=== PATIENT | male | born 1980 ===

== ENCOUNTER 2019-04-12 18:32 | Emergency (ER) | payer BC ==
[2019-04-12 18:42] VITALS: BP 145/92
[2019-04-12] MEDS ORDERED: Ondansetron ODT TAB* 4 MG PO ONE (18:46)
[2019-04-12] MEDS ORDERED: HYDROcodone/ACETAMIN 5-325 MG* 1 TAB PO ONE (18:47)
[2019-04-12] MEDS ORDERED: Tetan/Diph/Pertus SYR(Tdap)* 0.5 ML SYR(BOOSTRIX) use SYR IM ONE (18:47)
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
[2019-04-12] MEDS ORDERED: Silver Sulfadiazine 1%* 20 GM TOPICAL ONE (19:12)
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
== END 2019-04-12 19:40 | disposition home health service (06) ==
LOC: UCEAST 18:32
DX: T24.231A Burn of second degree of right lower leg, initial encounter (principal); T31.0 Burns involving less than 10% of body surface; Y26.XXXA Exposure to smoke, fire and flames, undetermined intent, initial encounter; Y92.9 Unspecified place or not applicable; Z23 Encounter for immunization
CPT/HCPCS: 16000; 90715; 99212; A9270-GY; G0463

== ENCOUNTER 2019-04-14 09:57 | Emergency (ER) | payer BC ==
[2019-04-14 11:38] VITALS: BP 124/83
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
== END 2019-04-14 11:36 | disposition home or self-care (01) ==
LOC: ED 09:57
DX: T24.232D Burn of second degree of left lower leg, subsequent encounter (principal); X08.8XXD Exposure to other specified smoke, fire and flames, subsequent encounter
CPT/HCPCS: 99281